=== PATIENT | female | born 1965 | race Caucasian/White ===

== ENCOUNTER 2025-04-07 12:00 | Outpatient (RCR) | payer BC, SELFPAY ==
--- NOTE | 2025-03-13 14:43 | HP.PTEVAL ---
Patient's Visit Information Visit Information Visit Information: ARNIE TSAI is a 59 year old F referred to Physical Therapy by Dr. Ervin Ibanez MD with a diagnosis of L knee pain chronic. Date of Evaluation: 03/13/25 Physical Therapist: Terrell Ponce, DPT, OCS, CSCS Visit Plan Frequency: 3x /Week Duration: 4-6 Weeks Plan: 3x/week for 4-6 weeks for aquatic based knee ROM L, HS adn quad stretches, LE ROM and strength emphasizing knee, hip and core and calorie burning to I or HEP. IE : orient to pool and educate on need to keep knee moving when sitting, sit no longer than 30 minutes, benefits of ex bike, avoiding excessive WB Subjective Subjective: B knee pain. They have OA and they hurt if sitting or standing too long and has been that way for two months. Nothing changed. Not sure why it started. Comfortable at rest. Worse at work, put on ambien b/c they kept moving. Hurts to roll in bed. 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 Basic ADL all I, hurts to get out of shower lifting over tub. No pain while knitting, hurts to get up. Avoids walking for fitness, limited in recent [place] vacation. Pain knee pain L >R: Pain Intensity (Out of 10): 0 Pain Intensity Range: 0 and 6 Comment: working on feet is worse Objective Objective: L antalgia walking into PT I, [employer] chair and bed with UE I. steps reciprocally with one rail but L is painful particularly descending. R knee AROM [id number], L knee -2 with pain to 88 with pain. HS adn quad mod tight at -30 90/90 test HS B. hip AROM WFL outside of tightness and ankle aROM 0 Df but otherwise WFL B. strength is L knee pain with ext and flexion 3/5, L knee 4-. hip is 3/5 B abd, ext adn 3+ flexion on R and 3 on L. ankle 4- B. + L knee scour, + patellar grind, - ant drawer. Balance/Special Test Scores Lower Extremity Functional Score: 37 Goals Goal 1:: I appropriate management of L knee OA pain ex adn activity modification Goal Time Frame: 4-6 Weeks Goal 2:: knee pain L 75% better at 1/10 at worst. Goal Time Frame: 4-6 Weeks Goal 3:: 0-105 AROM L knee to diminish problems on steps Goal Time Frame: 4-6 Weeks Goal 4:: steps reciprocally with one rail without pain. Goal Time Frame: 4-6 Weeks Rehabilitation Potential Physical Therapy Diagnosis: l knee stiffness and pain and inflammation limiting funciton. Rehabilitation Potential: Fair Anticipated Interventions Patient/Client Instruction: Educate patient on: Condition and Plan of Care For the Purpose of:: To decrease pain, To increase ROM, To improve nutrient delivery to tissue, To improve muscle performance and motor function, To increase tolerance to activity/condition/position and To improve ability of physical actions for home/community/work/leisure Therapeutic Exercise to Include: Strength training, Flexibilty training, Gait and locomotor training, In an aquatic setting, Passive ROM and Active ROM For the Purpose of:: To decrease pain, To decrease swelling/inflammation, To increase ROM, To improve nutrient delivery to tissue, To improve muscle performance and motor function, To increase tolerance to activity/condition/position and To improve ability of physical actions for home/community/work/leisure Text: Thank you for the opportunity to evaluate your patient. For Medicare and Medicare HMO plans, please review the plan of care and approve it. It will need to be FAXED BACK to us at [phone] for Medicare purposes. For Medicare only, by signing this I certify the plan of care. Please let me know if there are questions or concerns regarding this plan of care. Physician Signature: Date:
--- NOTE | 2025-04-07 13:25 | HP.PTDCSUM_ITS ---
Discharge Summary D/C summary: It has been my pleasure to treat ARNIE TSAI referred by Dr. Ervin Ibanez MD, with the diagnosis of L knee pain chronic for a total of 9 visit(s). Discharge Date: 04/07/25 Please see the following information for a summary of their discharge status. Subjective Subjective: [place] treats her well. I can move better. Tired afterwards. pain in knees is much better but also started mobic around the same time. Pain in knees this week to 10. Will join [employer] or [employer]. 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 Pain knee pain L >R: Pain Intensity (Out of 10): 0 Overall Improvement % Improvement: 85 Objective Objective/Function: 110 R knee and 103 L., Improving and should have enough to get on bike. Walking well today with mild R antalgia but tired after being in the pool. Goals Goal 1:: I appropriate management of L knee OA pain ex adn activity modification Goal Progress: Goal Met Goal 2:: knee pain L 75% better at 1/10 at worst. Goal Progress: Goal Met Goal 3:: 0-105 AROM L knee to diminish problems on steps Goal Progress: Progressing Goal 4:: steps reciprocally with one rail without pain. Goal Progress: Progressing Plan Plan: d/c to [facility] [employer] program. 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 Thank you for the referral of this patient. Sincerely, Terrell Ponce, DPT, OCS, CSCS Balance/Gait/Functional tests Balance/Special Test Scores Lower Extremity Functional Score: 50 Improvement % Improvement: 85
== END 2025-04-07 19:00 | disposition home or self-care (01) ==
LOC: PT 12:00
PROVIDERS: PCP Internal Medicine; Referring Provider Family Medicine; Visit Provider Family Medicine
DX: M25.562 Pain in left knee (principal); G89.29 Other chronic pain
CPT/HCPCS: 97113; 97161